=== PATIENT | male | born 1950 | race Caucasian/White ===

== ENCOUNTER 2017-10-30 13:18 | Emergency (ER) | payer MEDICARE ==
[~2017-10-30] VITALS: Ht 165.1 cm; Wt 86.2 kg
[~2017-10-30 13:18] MED LIST: AGGRENOX CAPSU1 EACH PO; AMLODIPINE BESY10 MG; ARMOUR THYROID90 M1 PO; ASPIRIN325 PO; DEPO-TESTO100 MG/1 M; GLUCOPHAGE1000 MG PO; NOVOLIN N100 UNIT/1 SQ; OMEGA-3100 MG; PRINIVIL10 MG PO; PRINIVIL40 MG PO; SYNTHROID; TOPROL XL100 MG PO
[2017-10-30] MEDS ORDERED: NIFEDIPINE ER90 M1 PO (13:30)
[2017-10-30] MEDS ORDERED: BUMETANIDE0.25 MG/1 IM (13:31)
[2017-10-30] MEDS ORDERED: ARMOUR THYROID120 M1 PO (13:31)
[2017-10-30] MEDS ORDERED: LABETALOL HCL100 MG PO (13:31)
[2017-10-30] MEDS ORDERED: ANTACID325 MG PO (13:32)
[2017-10-30] MEDS ORDERED: LINZESS290 MCG PO (13:32)
[2017-10-30 13:56] LABS: ABSOLUTE LYMPHOCYTES 1.1 thou/uL (0.8-5.3); ABSOLUTE MONOCYTES 0.7 thou/uL (0.0-1.2); ABSOLUTE NEUTROPHILS 6.6 thou/uL (1.6-8.1); BASOPHILS 0.4 %; EOSINOPHILS 0.3 %; HEMATOCRIT 34.5 % (42.0-52.0); HEMOGLOBIN 11.9 gm/dL (14.0-18.0); MCH 30.3 pg (26.0-34.0); MCHC 34.5 g/dL (28.0-37.0); MONOCYTES 8.7 %; NUCLEATED RBCS 0 /100WBC; PLATELET COUNT* 264 thou/uL (150-400); POLYS 77.6 %; RBC 3.92 mil/uL (4.50-6.00); RDW-CV 13.6 % (10.5-14.5); WBC 8.5 thou/uL (4.0-11.0)
[2017-10-30 14:02] LABS: CALCIUM 8.4 mg/dL (8.5-10.1); CREATININE 4.6 mg/dL (0.6-1.3); POTASSIUM 3.4 mmol/L (3.5-5.1)
[2017-10-30 14:20] LABS: URINE BILIRUBIN NEGATIVE (Negative); URINE BLOOD 2+ (Negative); URINE CLARITY CLEAR; URINE COLOR YELLOW; URINE GLUCOSE-RANDOM NEGATIVE (Negative); URINE KETONES NEGATIVE (Negative); URINE LEUKOCYTES NEGATIVE (Negative); URINE NITRITE NEGATIVE (Negative); URINE PROTEIN 2+ (Negative); URINE UROBILINOGEN 0.2 E.U./dl (0.2-1.0)
[2017-10-30 14:27] LABS: SQUAMOUS 0-3 Few /LPF (0-3); URINE WBC 0-5 Rare /HPF (0-5)
[2017-10-30 14:28] LABS: BACTERIA 1-9 Few /HPF (None Seen); CASTS None Seen /LPF (None Seen); CRYSTALS None Seen /LPF (None Seen); URINE RBC 0-2 Rare /HPF (0-2)
[2017-10-30] MEDS ORDERED: MIRALAX17 GM PO (14:31)
[2017-10-30 14:51] VITALS: BP 136/74
== END 2017-10-30 14:52 | disposition home or self-care (01) ==
LOC: M.ERS 13:18
PROVIDERS: Nurse Practitioner Family
DX: K59.00 Constipation, unspecified (principal); E87.1 Hypo-osmolality and hyponatremia; N19 Unspecified kidney failure; E11.9 Type 2 diabetes mellitus without complications; I10 Essential (primary) hypertension

== ENCOUNTER → 2018-02-06 | Day surgery (SDC) | payer MEDICARE ==
[~2018-02-06] MED LIST changes: +ANTACID325 MG PO; +ARMOUR THYROID120 M1 PO; +ATORVASTATIN CA40 MG PO; +BUMETANIDE 1 MG1 M1 PO; +BUMETANIDE0.25 MG/1 IM; +LABETALOL HCL100 MG PO; +LINZESS290 MCG PO; +MIRALAX17 GM PO; +NIFEDIPINE ER90 M1 PO; +NORCO 5-325 TA1 EACH PO; +PLAVIX 75 MG TA75 MG PO; +RENVELA800 MG PO; +SENNA8.6 MG PO; +STOOL SOFTENER100 MG PO
--- NOTE | ~2018-02-06 | OP ---
[facility] [address] [place] [address] OPERATIVE REPORT Name: ANIBAL OROSCO Room: [facility].#: [id number] Admission: 02/06/18 Attend Phys: Denny Fox Discharge: Date of : 54 Report #: [id number] THIS REPORT FOR: //name// CC: Darleen [facility] Physician staff DATE OF SERVICE: 02/06/2018 PREOPERATIVE DIAGNOSIS: End-stage renal disease. POSTOPERATIVE DIAGNOSIS: End-stage renal disease. PROCEDURES: 1. Laparoscopic peritoneal dialysis catheter placement. 2. Laparoscopic omentopexy. SURGEON: Denny Fox MD ANESTHESIA: General. ESTIMATED BLOOD LOSS: Minimal. SPECIMEN: None. DESCRIPTION OF PROCEDURE: After informed consent was obtained, the patient was brought to the Operating Room and placed supine. SCDs were placed and working, preoperative antibiotics were administered, general anesthesia was induced. The abdomen was prepped and draped in the usual sterile fashion. A 5 mm incision was made in the left upper quadrant. A 5 mm trocar was placed under direct vision. Pneumoperitoneum was established. A left-sided 5 mm port was placed. An 8 mm trocar was placed in the left rectus sheath above the umbilicus. The catheter was then placed through the 8 mm port. Catheter was then tunneled to the left upper quadrant of the abdomen. It flushed and drained with 750 mL of heparinized saline easily. About 400 mL of the saline was left in the abdomen. I then performed an omentopexy in the right upper quadrant by taking the omentum and using a suture passer to pass it through the omentum and then tied up to the abdominal wall. The ports were then removed under direct vision. The skin was closed with 4-0 Monocryl. Incisions were sealed with Dermabond. COMPLICATIONS: [place] [address] OPERATIVE REPORT Name: ANIBAL OROSCO Room: [facility]#: [id number] Admission: 02/06/18 Attend Phys: Denny Fox Discharge: Date of : 54 Report #: [id number] DISPOSITION: The patient was taken to recovery in satisfactory condition. By: [id number] Fox MD /aleksandra
[2018-02-06 06:35] LABS: HEMATOCRIT 33.9 % (42.0-52.0); HEMOGLOBIN 11.3 gm/dL (14.0-18.0); MCH 30.3 pg (26.0-34.0); MCHC 33.2 g/dL (28.0-37.0); MCV 91.1 fL (80.0-100.0); MPV 8.6 fl. (7.2-11.1); RBC 3.72 mil/uL (4.50-6.00); RDW-CV 14.1 % (10.5-14.5); WBC 6.4 thou/uL (4.0-11.0)
[2018-02-06 06:46] LABS: CALCIUM 8.9 mg/dL (8.5-10.1); CREATININE 6.5 mg/dL (0.6-1.3); POTASSIUM 4.5 mmol/L (3.5-5.1)
[2018-02-06 06:47] LABS: APTT 26.8 Seconds (25.0-31.3); PROTIME 10.4 Seconds (9.20-11.50)
[2018-02-06 06:50] LABS: ALBUMIN 3.2 g/dL (3.4-5.0); TOTAL BILIRUBIN 0.5 mg/dL (<0.1-1.0); TOTAL PROTEIN 6.7 g/dL (6.4-8.2)
--- NOTE | 2018-02-06 15:37 | EKG ---
[place] [address] ELECTROCARDIOGRAM REPORT Name: ANIBAL OROSCO Room: [facility].#: [id number] Admission: 02/06/18 Attend Phys: Denny Fox Discharge: Date of : 54 Report #: [id number] THIS REPORT FOR: //name// [facility] Test Date: 2018-02-06 Test Time: 06:53:08 Pat Name: ANIBAL OROSCO Department: Room: Gender: M Pharmacist In Charge Owner: ANGEL : 1950 Requested By: Denny Fox Order Number: [id number] López MD: Danielito Watson Measurements Intervals [place] Rate: 52 P: 3 SD: 208 QRS: 42 QRSD: 136 T: -11 QT: 495 QTc: 461 Interpretive Statements Sinus bradycardia Ventricular premature complex Right bundle branch block Compared to ECG 02/22/2011 17:16:05 Ventricular premature complex(es) now present Electronically Signed On 02-06-2018 15:37:06 DISASSEMBLER by Danielito Watson [email or web address] <ELECTRONICALLY SIGNED> By: Danielito Watson MD, [facility] 02/06/18 1537 [id number] Danielito Watson MD, [facility] /EPI
== END | disposition home or self-care (01) ==
LOC: M.SUR 06:06
PROVIDERS: Surgery
DX: N18.6 End stage renal disease (principal); E87.1 Hypo-osmolality and hyponatremia; Z79.899 Other long term (current) drug therapy; Z79.891 Long term (current) use of opiate analgesic

== ENCOUNTER 2018-04-25 16:56 | Observation (INO) | payer MEDICARE ==
[~2018-04-25] VITALS: Ht 165.1 cm; Wt 81.6 kg
[2018-04-25 17:10] VITALS: BP 152/80
--- NOTE | 2018-04-25 17:34 | NUR ---
PT BROUGHT BACK TO ER ROOM FROM WAITING AREA AT THIS TIME. PT HAS SLOW, STEADY GAIT.
--- NOTE | 2018-04-25 17:40 | NUR ---
NURSE IN ROOM. ASSESSMENT PERFORMED. BP CUFF AND PULSE OX ATTACHED TO PT. PT PLACED IN GOWN. VISITOR AT BEDSIDE. PT IN BED, HOB ELEVATED, TALKING TO VISITOR AT BEDSIDE. IV INSERTED. BLOOD WORK COLLECTED AND SENT TO LAB. RAIL SETTER CALLED FOR SECOND SET OF BLOOD CULTURES. PT MADE AWARE BY DR. CARLIN THAT PT WOULD LIKELY HAVE TO STAY IN HOSPITAL. PT STATED UNDERSTANDING, PT AGREEABLE.
--- NOTE | 2018-04-25 17:54 | NUR ---
PT TAKEN TO RADIOLOGY VIA WHEELCHAIR, TAKEN BY HAY SORTER.
[2018-04-25 17:56] LABS: ABSOLUTE BASOPHILS 0.1 thou/uL (0.0-0.2); ABSOLUTE EOSINOPHILS 0.1 thou/uL (0.0-0.7); ABSOLUTE MONOCYTES 0.8 thou/uL (0.0-1.2); ABSOLUTE NEUTROPHILS 6.1 thou/uL (1.6-8.1); BASOPHILS 1.4 %; EOSINOPHILS 0.8 %; HEMATOCRIT 32.1 % (42.0-52.0); HEMOGLOBIN 10.9 gm/dL (14.0-18.0); LYMPHOCYTES 11.9 %; MCH 31.2 pg (26.0-34.0); MCHC 34.1 g/dL (28.0-37.0); MCV 91.4 fL (80.0-100.0); MPV 7.9 fl. (7.2-11.1); NUCLEATED RBCS 0 /100WBC; PLATELET COUNT* 264 thou/uL (150-400); POLYS 75.9 %; RBC 3.51 mil/uL (4.50-6.00); RDW-CV 14.1 % (10.5-14.5); WBC 8.1 thou/uL (4.0-11.0)
[2018-04-25 18:08] LABS: ALBUMIN 2.7 g/dL (3.4-5.0); CALCIUM 8.9 mg/dL (8.5-10.1); POTASSIUM 3.7 mmol/L (3.5-5.1); TOTAL BILIRUBIN 0.4 mg/dL (<0.1-1.0); TOTAL PROTEIN 6.6 g/dL (6.4-8.2)
--- NOTE | 2018-04-25 18:42 | NUR ---
PT IN BED, HOB ELEVATED, TALKING WITH VISITOR AT BEDSIDE. US TECH COMPLETED VENOUS DOPPLER; REPORTED TO THIS NURSE THAT THERE WERE NO ABNORMAL FINDINGS.
--- NOTE | 2018-04-25 18:52 | NUR ---
REPORT GIVEN TO JUAN DANIEL BOO WHO IS TO ASSUME PT CARE AT THIS TIME.
[2018-04-25 19:47] VITALS: BP 140/57
[2018-04-25 20:20] VITALS: BP 140/57
--- NOTE | 2018-04-25 23:10 | NUR ---
PATIENT ARRIVED ON THE UNIT AT APPROX 2009. DRIVER/SALES WORKERS COMPLETED DOCUMENTED. SWELLNG AND REDNESS NOTED TO RIGHT KNEE. NO OTHER SKIN ISSUES NOTED AT THIS TIME. VSS. ALERT AND ORIENTED TIMES FOUR. MEDICATION GIVEN AND CHANGED TO PATIENTS HOME ROUTINE. DISCUSSED PERITONEAL DIALYSIS AND PATIENT INFORMED RN THAT HIS DIALYSIS NURSE WAS AWARE OF ADMISSION TO THIS HOSPITAL. NO CONCERNS NOTED. NO COMPLAINTS OF PAIN OR DISCOMFORT NOTED. WILL CONTINUE TO MONITOR
[2018-04-26 04:03] LABS: HEMATOCRIT 29.8 % (42.0-52.0); HEMOGLOBIN 10.1 gm/dL (14.0-18.0); MCHC 33.7 g/dL (28.0-37.0); RBC 3.24 mil/uL (4.50-6.00); RDW-CV 14.1 % (10.5-14.5); WBC 7.8 thou/uL (4.0-11.0)
[2018-04-26 04:30] LABS: ALBUMIN 2.3 g/dL (3.4-5.0); CALCIUM 8.2 mg/dL (8.5-10.1); MAGNESIUM 2.3 mg/dL (1.8-2.4); POTASSIUM 3.3 mmol/L (3.5-5.1); TOTAL BILIRUBIN 0.5 mg/dL (<0.1-1.0); TOTAL PROTEIN 5.6 g/dL (6.4-8.2)
--- NOTE | 2018-04-26 05:59 | NUR ---
PATIENT RESTED THROUGH THE REST OF SHIFT. NO COMPLAINTS OF PAIN OR DISCOMFORT NOTED. HOURLY ROUNDING COMPLETED SA CHARTED
[2018-04-26 07:04] VITALS: BP 134/52
[2018-04-26] MEDS ORDERED: NORCO 5-325 TA1 EACH PO (09:13)
[2018-04-26 09:40] VITALS: BP 134/52
[2018-04-26 14:19] VITALS: BP 134/52
--- NOTE | 2018-04-26 14:21 | NUR ---
SW met with pt to complete initial assessment and discuss safe dc planning for today. Pt alert, oriented. Pt lives at home alone. Pt has a brother and a friend who provide support as needed. Pt does not recall name of HH in the past and said maybe [facility]? but pt felt that they maybe did not "do much" for pt and pt preference for [facility]; JOSE ALBERTO faxed referral and dc instructions and order for PT. [phone] fax [phone]. Pt brother providing pt ride home after pt brother is finished with work for the day. No other dc needs expressed.
--- NOTE | 2018-04-26 15:40 | NUR ---
ASSESSMENT COMPLETE. PT ALERT AND ORIENTED X4. INFECTIOUS DISEASE DID NOT ORDER ABX AND STATED KNEE WAS NOT INFECTION. DR ARRIOLA ORDERED LIGHT COMPRESSION, ELSI WRAP IN PLACE AT THIS TIME. NORCO GIVEN ONCE FOR PAIN. PHYSICAL THERAPY AMBULATED WITH PATIENT IN HALLWAY. PT IS STEADY AT THIS TIME. PT TOLERATING MEALS, DENIES N/V. PT IS ON ROOM AIR, VSS. K+ REPLACED PER PROTOCOL. SEE ASSESSMENT AND VITALS FOR OTHER DETAILS. CALL LIGHT WITHIN REACH, WILL CONTINUE PLAN OF CARE
[2018-04-26 17:50] VITALS: BP 134/52
--- NOTE | 2018-04-26 17:51 | NUR ---
PT LEFT AT 1743 WITH BROTHER. PT LEFT WITH ALL BELONGINGS. DC INSTRUCTIONS GIVEN AND PRESCRIPTIONS GIVEN AND PATIENT VERBALIZES UNDERSTANDING.
--- NOTE | 2018-04-27 13:54 | CON ---
[address] [address] CONSULTATION Name: KWESIANIBAL CORNELIO Room: [address] Matty Kelly#: [id number] Admission: 04/25/18 Attend Phys: Barbie Chaudhary MD Discharge: 04/26/18 Date of : 54 Report #: [id number] THIS REPORT FOR: //name// CC: Barbie HUANG Physician staff NEPHROLOGY CONSULTATION CONSULTING PHYSICIAN: Dr. Chaudhary REASON FOR CONSULTATION: End-stage kidney disease. HISTORY OF PRESENT ILLNESS: A 67-year-old gentleman with a history of end-stage kidney disease, on peritoneal dialysis, who recently had a fall about 1-2 weeks ago, was seen in the ER at [facility], had some redness and swelling and was sent to the ER for further evaluation and admitted overnight. He has been seen by Infectious Disease and antibiotics have not been recommended as it is believed that he has a hematoma related to the fall and no infection. The patient himself has no complaints. He has been doing well with his PD. No abdominal pain or constipation presently and he appears to be comfortable. REVIEW OF SYSTEMS: Constitutional, psych, heme, eyes, ENT, respiratory, cardiac, GI, , endocrine all negative except as documented above. PAST MEDICAL HISTORY: End-stage kidney disease, on peritoneal dialysis; diabetes; hypertension; history of TIA/stroke. SOCIAL HISTORY: No tobacco. FAMILY HISTORY: Not pertinent, a 67-year-old gentleman. CURRENT MEDICATIONS: Reviewed. PHYSICAL EXAMINATION: VITAL SIGNS: Blood pressure 134/52, pulse 73, temperature 36.7, respirations 16. GENERAL: In no acute distress. EYES: Extraocular movements intact. EARS: Externally normal. CARDIOVASCULAR: Regular rate. LUNGS: No crackles. ABDOMEN: Soft. MUSCULOSKELETAL: He has some swelling about his right knee. He had some erythema earlier, which seems to be improved and no significant pain to light palpation. LYMPHATICS: Swelling in [place] [address] CONSULTATION Name: OROSCOANIBAL [address]#: [id number] Admission: 04/25/18 Attend Phys: Barbie Chaudhary MD Discharge: 04/26/18 Date of : 54 Report #: [id number] PSYCHIATRIC: Awake, alert. LABORATORY DATA: White cell count 7.8, hemoglobin 10.1, platelets 231. Sodium 140, potassium 3.3, chloride 104, bicarbonate 28, BUN 60, creatinine 6, glucose 109, calcium 8.2, magnesium 2.3, albumin 2.3. ASSESSMENT AND PLAN: 1. End-stage kidney disease, on peritoneal dialysis. 2. Right knee hematoma, status post fall. 3. Anemia. 4. Hyperkalemia. 5. Hypoalbuminemia with an albumin of 2.3. 6. Secondary hyperparathyroidism, on sevelamer. 7. Hypertension. PLAN: 1. Potassium has been supplemented. 2. Educated on protein supplementation through diet. 3. Continue CHATO therapy. 4. Continue PD. If he is discharged today, he can resume his home dialysis tonight. Otherwise, we will set him up for peritoneal dialysis while here as an inpatient. Thank you for requesting my opinion in the care and management of this patient. <ELECTRONICALLY SIGNED> By: Seymour Pruett MD 04/27/18 1354 1134 [id number] Pruett MD /nt
--- NOTE | 2018-04-29 09:43 | CON ---
[address] [address] CONSULTATION Name: ANIBAL OROSCO Room: [address] Matty Kelly#: [id number] Admission: 04/25/18 Attend Phys: Barbie Chaudhary MD Discharge: 04/26/18 Date of : 54 Report #: [id number] THIS REPORT FOR: //name// CC: Barbie [facility] Physician staff DATE OF SERVICE: 04/26/2018 INFECTIOUS DISEASE CONSULTATION ATTENDING PHYSICIAN: Dr. Barbie Chaudhary. REASON FOR CONSULTATION: Question right leg cellulitis. HISTORY OF PRESENT ILLNESS: The patient is a 67-year-old white man who apparently fell on his right knee 2 weeks ago tomorrow. Visited with [place]. He was discharged home. He continues to have swelling of the knee and pain. Denies having had fevers. The patient tells me he is on Plavix and that is why the size of the hematoma, right knee. PAST MEDICAL HISTORY: 1. Diet-controlled diabetes mellitus. 2. Chronic kidney disease, on peritoneal hemodialysis for a year under the care of Dr. Deleon. 3. Hypertension. 4. Fistula left arm. 5. Previous TIAs, strokes. SOCIAL HISTORY: Disabled physician Family Practice. FAMILY HISTORY: See H and P, old records. REVIEW OF SYSTEMS: As above and see H and P and ER records and essentially not contributory. DRUG ALLERGIES: None listed. MEDICATIONS: The patient received a gram of IV Rocephin yesterday. He is on treatment with thyroid 120 mg p.o. daily, clopidogrel bisulfate 75 mg p.o. daily, labetalol 100 mg p.o. daily, sevelamer carbonate 800 mg t.i.d., nifedipine XL 90 mg daily, diphenhydramine 25 mg at bedtime, sodium phosphate intravenously x1, replacement of magnesium and potassium per protocol p.r.n., senna p.r.n., ondansetron p.r.n., acetaminophen, docusate, and atorvastatin [address] [place] [address] CONSULTATION Name: OROSCOANIBAL Room: [address] Robin#: [id number] Admission: 04/25/18 Attend Phys: Barbie Chaudhary MD Discharge: 04/26/18 Date of : 54 Report #: [id number] PHYSICAL EXAMINATION: GENERAL: A well-developed, not toxic looking white man, afebrile since admission with following vital signs. VITAL SIGNS: Temperature 98.3, pulse 61, respirations 16, BP 140/57, height 5 feet 5 inches, weight 180 pounds. HEENT: Within normal range. NECK: Supple. No thyromegaly or lymphadenopathy. LUNGS: Clear to auscultation. HEART: S1, S2. No gallops or murmurs. ABDOMEN: Dialysis PD catheter. Soft, no masses or megaly. GENITAL AND RECTAL: Deferred. EXTREMITIES: The right knee with large hematoma, small right knee effusion, a small area of skin abrasion and necrosis. The entire right lower extremity swollen. The temperature only possibly mildly increased as compared to the left. NEUROLOGIC: Grossly within normal limits. LABORATORY DATA: Sodium 140, potassium 3.3, BUN 60, creatinine 6, glucose 109. SGOT, bilirubin, magnesium normal. Calcium 8.2, low, possibly reflecting hypoalbuminemia and as a matter of fact, the albumin is only 2.3 g/dL. D-dimer is 2.22. WBC 7800, hemoglobin 10.1 g/dL, and platelets 231,000. The white blood cell count differential reveals 75% segmented neutrophils yesterday. Prealbumin 21.8. MICROBIOLOGY DATA: Blood cultures were ordered and obtained in the Emergency Room, they are negative so far. RADIOLOGY EVALUATION: Ultrasound venous circulation negative for DVT. X-ray right knee, no broken bones and large hematoma noted. ASSESSMENT: 1. Right knee, leg swelling, hematoma formation secondary to trauma. The patient is on Plavix. 2. No clear cut evidence of cellulitis. 3. Chronic renal failure, on peritoneal dialysis. 4. Hypoalbuminemia. 5. Anemia of chronic disease. 6. Hypertension. 7. Diet-controlled diabetes mellitus. SUGGESTIONS: We will obtain ESR and CRP. If those not significantly elevated, favor no antibiotic, to avoid possible complication from [place] [address] CONSULTATION Name: ANIBAL OROSCO Room: [address] Matty Kelly#: [id number] Admission: 04/25/18 Attend Phys: Barbie Chaudhary MD Discharge: 04/26/18 Date of : 54 Report #: [id number] Chaudhary, thank you for requesting my suggestions. <ELECTRONICALLY SIGNED> By: Denis Eisenberg MD 04/29/18 0943 0801 [id number] Eisenberg MD /nt
== END 2018-04-26 17:43 | disposition home health service (06) ==
LOC: M.ERS 16:56 → M.3W 18:28 → M.TBA-ER 18:28 → M.3W 20:11
PROVIDERS: Emergency Medicine Emergency Medical Services; ADMIT Internal Medicine
DX: S80.01XA Contusion of right knee, initial encounter (principal); I12.0 Hypertensive chronic kidney disease with stage 5 chronic kidney disease or end stage renal disease; E11.22 Type 2 diabetes mellitus with diabetic chronic kidney disease; N18.6 End stage renal disease; D64.9 Anemia, unspecified; E87.5 Hyperkalemia; E88.09 Other disorders of plasma-protein metabolism, not elsewhere classified; N25.81 Secondary hyperparathyroidism of renal origin; Z99.2 Dependence on renal dialysis; Z86.73 Personal history of transient ischemic attack (TIA), and cerebral infarction without residual deficits

== ENCOUNTER 2018-08-15 05:47 | Emergency (ER) | payer MEDICARE ==
[~2018-08-15] VITALS: Ht 165.1 cm; Wt 81.7 kg
[2018-08-15] MEDS ORDERED: PRORENAL QD SO1 EACH PO (06:03)
[2018-08-15] MEDS ORDERED: TELMISARTAN80 MG PO (06:03)
[2018-08-15] MEDS ORDERED: CONSTULOSE10 GM/15 M PO (06:04)
[2018-08-15] MEDS ORDERED: CALCITRIOL0.25 MCG PO (06:04)
[2018-08-15] MEDS ORDERED: MIRALAX17 GM PO (06:05)
[2018-08-15 06:12] LABS: ABSOLUTE LYMPHOCYTES 1.2 thou/uL (0.8-5.3); ABSOLUTE MONOCYTES 1.1 thou/uL (0.0-1.2); ABSOLUTE NEUTROPHILS 9.3 thou/uL (1.6-8.1); BASOPHILS 0.4 %; EOSINOPHILS 0.4 %; HEMATOCRIT 38.7 % (42.0-52.0); HEMOGLOBIN 12.7 gm/dL (14.0-18.0); LYMPHOCYTES 10.2 %; MCH 31.2 pg (26.0-34.0); MCHC 32.8 g/dL (28.0-37.0); MCV 95.2 fL (80.0-100.0); MONOCYTES 9.7 %; MPV 7.9 fl. (7.2-11.1); NUCLEATED RBCS 0 /100WBC; PLATELET COUNT* 285 thou/uL (150-400); POLYS 79.3 %; RBC 4.07 mil/uL (4.50-6.00); RDW-CV 13.7 % (10.5-14.5); WBC 11.7 thou/uL (4.0-11.0)
[2018-08-15 06:28] LABS: CALCIUM 8.8 mg/dL (8.5-10.1); CREATININE 7.2 mg/dL (0.6-1.3); POTASSIUM 4.1 mmol/L (3.5-5.1)
[2018-08-15 06:37] LABS: ALBUMIN 3.3 g/dL (3.4-5.0); TOTAL BILIRUBIN 0.5 mg/dL (<0.1-1.0); TOTAL PROTEIN 6.8 g/dL (6.4-8.2)
[2018-08-15 08:07] VITALS: BP 136/60
== END 2018-08-15 08:08 | disposition home or self-care (01) ==
LOC: M.ERS 05:47
PROVIDERS: Emergency Medicine
DX: K42.9 Umbilical hernia without obstruction or gangrene (principal); I12.0 Hypertensive chronic kidney disease with stage 5 chronic kidney disease or end stage renal disease; E11.22 Type 2 diabetes mellitus with diabetic chronic kidney disease; N18.6 End stage renal disease; Z99.2 Dependence on renal dialysis; Z86.73 Personal history of transient ischemic attack (TIA), and cerebral infarction without residual deficits

== ENCOUNTER → 2018-09-09 | Day surgery (SDC) | payer MEDICARE ==
[~2018-09-09] MED LIST changes: +CALCITRIOL0.25 MCG PO; +CONSTULOSE10 GM/15 M PO; +NORCO 5-325 TA1 EAC1 PO; +PRORENAL QD SO1 EACH PO; +TELMISARTAN80 MG PO
[2018-09-09 10:30] LABS: HEMATOCRIT 34.5 % (42.0-52.0); HEMOGLOBIN 11.6 gm/dL (14.0-18.0); MCH 32.1 pg (26.0-34.0); MCHC 33.7 g/dL (28.0-37.0); MCV 95.3 fL (80.0-100.0); MPV 8.8 fl. (7.2-11.1); RBC 3.61 mil/uL (4.50-6.00); RDW-CV 13.9 % (10.5-14.5); WBC 7.9 thou/uL (4.0-11.0)
[2018-09-09 10:40] LABS: CALCIUM 8.8 mg/dL (8.5-10.1); CREATININE 6.8 mg/dL (0.6-1.3); POTASSIUM 3.9 mmol/L (3.5-5.1)
== END | disposition home or self-care (01) ==
LOC: M.SUR 07:29
PROVIDERS: Surgery
DX: K42.0 Umbilical hernia with obstruction, without gangrene (principal); G47.30 Sleep apnea, unspecified; Z79.899 Other long term (current) drug therapy